=== PATIENT | female | born 1980 | race Two or more races ===

== ENCOUNTER 2021-03-25 03:25 | Emergency (ER) | payer MEDICAID ==
[~2021-03-25] VITALS: Ht 157.5 cm; Wt 74.8 kg
[2021-03-25 04:57] LABS: Urine Bacteria FEW /hpf (None Seen); Urine Blood 2+ /uL (Negative); Urine Specific Gravity 1.007 (1.001-1.035); Urine WBC 272 /hpf (0 - 5); Urine WBC Clumps PRESENT /hpf (None Seen)
[2021-03-25 05:04] LABS: Basophils # (auto) 0.1 10 ^3/uL (0-0.2); Basophils % (auto) 0.3 % (0.0-2.0); Eosinophils # (auto) 0.1 10 ^3/uL (0-0.8); Eosinophils % (auto) 0.5 % (0.0-7.0); Hematocrit 38.4 % (36.0-46.0); Lymphocytes # (auto) 3.2 10 ^3/uL (0.4-5.4); Lymphocytes % (auto) 22.5 % (10.0-50.0); Mean Corpuscular Hemoglobin 28.7 pg (28.0-32.0); Mean Corpuscular Hgb Conc. 33.9 g/dL (32.0-36.0); Mean Corpuscular Volume 84.7 fL (80.0-100.0); Monocytes # (auto) 0.9 10 ^3/uL (0-1.3); Monocytes % (auto) 6.3 % (0.0-12.0); Neutrophils # (auto) 10.1 10 ^3/uL (1.6-8.6); Neutrophils % (auto) 70.4 % (37.0-80.0); Red Blood Cells 4.53 10^6/uL (4.0-5.20); Red Cell Distribution Width 14.2 % (11.8-14.3); White Blood Cell 14.3 10^3/uL (4.4-10.8)
[2021-03-25 05:12] LABS: Albumin 3.6 g/dL (3.4-5.0); Potassium 3.8 mmol/L (3.5-5.1)
[2021-03-25 05:15] LABS: BUN/Creatinine Ratio 18.6; Bilirubin, Total 0.3 mg/dL (0.2-1.0); Total Protein 7.9 g/dL (6.4-8.2)
[2021-03-25] MEDS ORDERED: cefTRIAXone SOD 1,000 MG VL IM ONE (07:30)
[2021-03-25] MEDS ORDERED: IBUPROFEN 800 MG TAB PO ONE (07:45)
[2021-03-25 07:46] VITALS: BP 107/65
== END 2021-03-25 08:17 | disposition home or self-care (01) ==
LOC: ER 03:25
DX: N39.0 Urinary tract infection, site not specified (principal)
CPT/HCPCS: 36415; 80053; 81001; 81025; 85025; 87086; 96372; 99283; J0696; J7030